=== PATIENT | male | born 1990 | race Caucasian/White ===

== ENCOUNTER 2019-01-11 09:11 | Emergency (ER) | payer OTHER, SELFPAY ==
[2019-01-11 09:14] VITALS: BP 125/73; PULSE 74; RESP 18; TEMP 36.2; O2SAT 98; BMI 24.7
--- NOTE | 2019-01-11 09:31 | ED.DCSUM_ITS ---
- ER Visit Summary Date of Service: 01/11/19 Chief Complaint: Right groin pain History of Present Illness: The patient is a 28 M with no primary care physician. He reports that he had a right inguinal hernia repair in April [address] Zabala at [facility]. He reports that he followed up a month later and was doing fine. However, over the past 2 months he has had right groin pain that is been gradually increasing. It is a continuous throbbing pain is 8 out of 10 at worst and 5-10 currently. Is worsened by lifting. Is relieved by heating pad and ibuprofen. He denies any other associated symptoms. No fever, chills, nausea, vomiting, diarrhea, dysuria, frequency, penile discharge, or testicular pain. Physical Examination: Vitals: Stable. Afebrile. General: Well-nourished and well-developed. Head: Normocephalic atraumatic. Neck: Supple, no lymphadenopathy. No JVD. Nontender. Cardiovascular: Regular rate and rhythm. No murmurs. Respiratory: No respiratory distress. Clear to auscultation bilaterally. Abdominal: Soft, moderate tenderness palpation in the right inguinal region. There is no palpable hernia. Nondistended, normal bowel sounds. No guarding, rebound, or peritoneal signs. : Normal circumcised male. No testicular tenderness palpation. He does have a small right inguinal hernia that is only felt when he coughs. There is no herniated contents in his scrotum. Back: Nontender. Extremities: Nontender, no edema. Skin: Normal color, no rash. Neurologic: Alert and oriented ?3. Cranial nerves II through XII are intact. Normal strength and sensation. Psych: Normal affect. Emergency Department Course and Treatment: Patient was treated with naproxen. I did have a prolonged discussion with him that with 2 months of pain opiate-based medications are not warranted or in his best interest. Treatment Plan: Patient be discharged instructions to follow-up with his surgeon, Dr. Zabala, as soon as possible for further evaluation and treatment. He refused a prescription for naproxen. Return to the emergency department for any worsening symptoms. Disposition: Discharged in improved and stable condition. Impression: 1. Right inguinal hernia. This note was generated with [employer] software. It may contain incorrect words, spelling, and punctuation that were not noted in review of the chart prior to signing ED Disposition - Plan for ED Patient: Instructions: HERNIA (Inguinal, Ventral, Umbilical) Additional Instructions: Follow-up with Dr. Zabala as soon as possible. His phone number is .
[2019-01-11] MEDS: Naproxen 250 MG Tablet 500 MG PO (09:43)
== END 2019-01-11 09:58 | disposition home or self-care (01) ==
LOC: ED 09:52
PROVIDERS: Emergency Provider Emergency Medicine
DX: K40.90 Unilateral inguinal hernia, without obstruction or gangrene, not specified as recurrent (principal); F17.200 Nicotine dependence, unspecified, uncomplicated
CPT/HCPCS: 99282